=== PATIENT | female | born 1975 | race Caucasian/White ===

== ENCOUNTER 2018-06-04 16:56 | Emergency (ER) | payer OTHER ==
[~2018-06-04] VITALS: Ht 167.6 cm; Wt 99.8 kg
[2018-06-04] MEDS ORDERED: EFFEXOR XR75 MG PO ×2 (17:16→17:22)
[2018-06-04] MEDS ORDERED: SEROQUEL100 MG PO ×2 (17:17→17:22)
[2018-06-04] MEDS ORDERED: OMEPRAZOLE20 MG PO (17:18)
[2018-06-04] MEDS ORDERED: FOLIC ACID1 MG PO (17:18)
[2018-06-04] MEDS ORDERED: ALLOPURINOL300 MG PO (17:18)
[2018-06-04] MEDS ORDERED: RANITIDINE HCL300 MG PO (17:19)
== END 2018-06-04 17:27 | disposition home or self-care (01) ==
LOC: ED 16:56
DX: Z76.0 Encounter for issue of repeat prescription (principal); F31.9 Bipolar disorder, unspecified; F20.9 Schizophrenia, unspecified; G40.909 Epilepsy, unspecified, not intractable, without status epilepticus; M32.9 Systemic lupus erythematosus, unspecified; F17.200 Nicotine dependence, unspecified, uncomplicated; Z79.899 Other long term (current) drug therapy
CPT/HCPCS: 99281

== ENCOUNTER 2018-07-08 08:58 | Emergency (ER) | payer OTHER ==
[~2018-07-08] VITALS: Ht 167.6 cm; Wt 99.8 kg
[~2018-07-08 08:58] MED LIST: ALLOPURINOL300 MG PO; EFFEXOR XR75 MG PO; FOLIC ACID1 MG PO; OMEPRAZOLE20 MG PO; RANITIDINE HCL300 MG PO; SEROQUEL100 MG PO
[2018-07-08] MEDS ORDERED: ANUSOL-HC25 MG PR (10:07)
[2018-07-08] MEDS ORDERED: DICYCLOMINE HCL10 MG PO (10:07)
== END 2018-07-08 10:11 | disposition home or self-care (01) ==
LOC: ED 08:58
DX: R10.9 Unspecified abdominal pain (principal); F31.9 Bipolar disorder, unspecified; F17.200 Nicotine dependence, unspecified, uncomplicated; M32.9 Systemic lupus erythematosus, unspecified; F20.9 Schizophrenia, unspecified; G40.909 Epilepsy, unspecified, not intractable, without status epilepticus; Z90.710 Acquired absence of both cervix and uterus; Z88.6 Allergy status to analgesic agent; Z88.8 Allergy status to other drugs, medicaments and biological substances; Z79.899 Other long term (current) drug therapy
CPT/HCPCS: 80053; 81001; 83605; 83690; 85025; 85610; 96361; 96374; 96375; 99284-25; J2405; J2550; J7030